=== PATIENT | male | born 1965 | race Caucasian/White ===

== ENCOUNTER 2023-02-05 18:19 | Emergency (ER) | payer MEDICAID, SELFPAY ==
[2023-02-05 18:16] VITALS: BP 171/102; PULSE 88; RESP 18; TEMP 36.8; O2SAT 98
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
--- NOTE | 2023-02-05 19:00 | RT.EKG_ITS ---
APPROVED REPORT Exam: Resting ECG Reason for Exam: chest pain Patient Location: E HR:75 bpm ECG Measurements Heart Rate 75 AXIS WV 168 P 54 QRSd 85 QRS 72 QT 426 T 72 QTc 477 Conclusion Sinus rhythm...normal P axis, V-rate 60- 99 Consider left ventricular hypertrophy...(S V1+R V5/V6) >3.50mV Borderline ST elevation, inferior leads...ST >0.06mV, II III aVF Narrow complex normal sinus rhythm at a rate of 75. Normal axis. Intervals within normal limits. M ild ST segment submillimeter elevations inferior leads. No reciprocal depressions. No prior for [facility].
[2023-02-05 19:11] LABS: Bilirubin Small (Negative); Blood Negative (Negative); Clarity Clear (Clear); Glucose Negative (Negative); Ketones Trace mg/dL (Negative); Leukocyte Esterase Negative (Negative); Nitrite Negative (Negative); Specific Gravity 1.025 (1.005-1.025); Urobilinogen 0.2 mg/dL (Up to 0.2); pH 5.5 (5-8)
[2023-02-05 19:23] LABS: *AMPHETAMINES SCREEN URINE Negative (Negative); *BARBITURATES SCREEN URINE Negative (Negative); *BENZODIAZEPINES SCREEN URINE Negative (Negative); Cannabinoids THC Positive (Negative); Cocaine Screen,Urine Negative (Negative); METHADONE URINE SCREEN Negative (Negative); OPIATES URINE SCREEN Negative (Negative)
[2023-02-05 19:25] LABS: Tricyclic Antidepressants Negative (Negative)
[2023-02-05 19:45] LABS: Abs Immature Grans 0.04 10^3/uL (0.0-0.06); Absolute Basophil Count 0.09 10^3/uL (0.0-0.2); Absolute Lymphocyte Count 2.35 10^3/uL (1.2-3.4); Absolute Monocyte Count 1.04 10^3/uL (0.1-0.8); Absolute Neutrophil Count 6.28 10^3/uL (1.2-6.7); Basophils % 0.9; HCT 40.9 % (40.0-50.0); HGB 14.4 g/dL (13.5-17.5); Immature Grans % 0.4; Lymphocytes % 23.7; MCH 32.7 pg (27.0-33.0); MCHC 35.2 % (32.0-36.0); MCV 93 fL (80-95); MPV 9.5 fL (8.0-11.0); Monocytes % 10.5; Neutrophils % 63.5; Platelet Count 332 10^3/uL (130-400); RDW 11.7 % (11.8-14.1); RDW-SD 40.1 fL
[2023-02-05 20:09] LABS: ALT 40 U/L (16-63); AST 73 U/L (15-37); Albumin 3.6 g/dL (3.4-5.0); Alkaline Phosphatase 73 U/L (46-116); Anion Gap 10.8 mmol/L (3-11); BUN 14 mg/dL (7-18); Bilirubin, Total 0.6 mg/dL (0.2-1.0); CO2 25.2 mmol/L (21.0-32.0); Calcium 9.9 mg/dL (8.5-10.1); Chloride 97 mmol/L (98-107); Glucose 112 mg/dL (74-106); Potassium 3.9 mmol/L (3.5-5.1); Sodium 133 mmol/L (136-145); TSH (W/Ref FT4) 3.81 uIU/mL (0.36-3.74); Total Protein 8.5 g/dL (6.4-8.2)
[2023-02-05 20:18] VITALS: BP 158/86
[2023-02-05 20:19] LABS: ETHANOL BLOOD < 3.0 mg/dL (<10)
[2023-02-05 20:20] LABS: Salicylate 7.2 mg/dL (<2.8)
[2023-02-05 20:22] LABS: Acetaminophen < 2 ug/mL (10-30)
[2023-02-05 20:37] LABS: FREE T4 1.28 ng/dL (0.76-1.46)
[2023-02-05 20:40] LABS: Troponin I < 50 ng/L (<or=60)
[2023-02-05] MEDS: Melatonin 3 MG TAB PO (21:14)
[2023-02-05] MEDS: LORazepam 1 MG TAB PO (21:14)
[2023-02-06] VITALS (44 sets, daily range): BP systolic 110–224; BP diastolic 75–122; PULSE 65–87; RESP 13–25; TEMP 36.7; O2SAT 94–99
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
--- NOTE | 2023-02-06 08:30 | CMSP_ITS ---
Care Management Safety Plan Status Status: Voluntary Reason for Wait Reason for Wait: Inpatient Admission Safety Plan Safety Plan: VOLUNTARY FOR INPATIENT PSYCHIATRIC STABILIZATION.? Patient is appropriate in all interactions since arriving at [facility]; Pt has demonstrated appropriate coping and communication skills, has articulated his or her needs and concerns and is fully engaged during staff interactions. Safety plan has been established with patient, and care team, to adhere to patient goals, identify restrictions based on behavioral status, address nutrition, and determine allowed personal belongings, tools for hygiene and personal care. Determine level of activity including ambulation, level of supervision, visitors, and determine privileges based on behaviors and level of engagement by pt. SAFETY PLAN: 1. Will remain on suicide precautions, in paper clothes 2. Will remain in room under direct supervision of one-on-one staff at all times provided by [employer]; GRANT, SHARED SERVICES AND OUTSOURCING MANAGER pleating supervisor. 3. May have paper cups, plates, finger foods as well as a cardboard spoon with which to eat meals. 4. Follow [facility] Management of the Admitted Behavioral Health Patient policy. 5. Shower available in Zone B without restriction. . 6. Personal belongings-soft items permitted at RN discretion, reading glasses provided as well. 7. Visitors-none at this time. 8. Activities: soft cart items approved per RN discretion. 9.? Bathroom privileges available without restriction in Zone B. 10. Phone: limited to cordless phone at RN discretion. Due to VOLUNTARY status, if patient wishes to leave [facility], staff will contact [facility] Crisis Screener ([phone]) and Load Planner ([phone]) as soon as possible. In the event of elopement, notify [facility] Police ([phone]).
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
--- NOTE | 2023-02-06 17:00 | RT.EKG_ITS ---
APPROVED REPORT Exam: Resting ECG Reason for Exam: chest pain Patient Location: E HR:74 bpm ECG Measurements Heart Rate 74 AXIS [place] 163 P 49 QRSd 85 QRS 66 QT 417 T 59 QTc 463 Conclusion Sinus rhythm...normal P axis, V-rate 60- 99 Consider left ventricular hypertrophy...(S V1+R V5/V6) >3.50mV Anterior ST elevation, probably due Slight ST elevation V1-3. slightly changed from previous.
--- NOTE | 2023-02-06 17:15 | DI.CT_ITS ---
Exam(s) CT HEAD WO EXAM: CT HEAD WO CLINICAL HISTORY: memory deficits. TECHNIQUE: Imaging Protocol: Axial computed tomography images with coronal and sagittal reformatted images were created and reviewed COMPARISON: No exams were available for comparison FINDINGS: Ventricles and Extra axial spaces: Normal in size and morphology for the patient's age. Hemorrhage: None. Cerebral parenchyma: There are areas of decreased attenuation in the white matter suspicious for kyle y small vessel ischemic disease. There are bilateral chronic lacunar infarcts present. Midline shift: None. Brainstem/Cerebellum: Normal. Calvarium: Normal. Visualized Paranasal sinuses/Mastoids: There is a mucous retention cyst in the right sphenoid sinus. The mastoid air cells are clear as are the other paranasal sinuses. Soft Tissues: Unremarkable. IMPRESSION: No acute intracranial process. RADIATION DOSE DELIVERED: Total DLP DATA REPOSITORY: All CT scans at this facility are submitted to the National Radiology Data Registry (NRDR) Dose Index Registry (DIR) with the [employer] (ACR). RADIATION OPTIMIZATION: All CT scans at this facility use at least one of these dose optimization te chniques: automated exposure control; mA and/or kV adjustment per patient size (includes targeted exa ms where dose is matched to clinical indication); or iterative reconstruction.
[2023-02-06] MEDS: Aspirin 325 MG TAB PO (17:24)
[2023-02-06 17:49] LABS: Troponin I < 50 ng/L (<or=60)
[2023-02-06] MEDS: Mylanta Suspension 30 ML CUP PO (18:28)
[2023-02-06] MEDS: fentaNYL 100 MCG/2 ML VIAL 25 MCG IVP (18:28)
[2023-02-06] MEDS: Ondansetron 4 MG/2 ML VIAL IVP (18:28)
[2023-02-06] MEDS: LORazepam 2 MG/ML VIAL 1 MG IVP (18:43)
[2023-02-06 18:44] LABS: Troponin I < 50 ng/L (<or=60)
--- NOTE | 2023-02-06 19:42 | DI.VRAD_ITS ---
PROCEDURE INFORMATION: Exam: CT Head Without Contrast Exam date and time: 02/06/2023 7:19 PM Age: 57 years old Clinical indication: Other: Memory deficits TECHNIQUE: Imaging protocol: Computed tomography of the head without contrast. COMPARISON: No relevant prior studies available. FINDINGS: Brain: Moderate generalized cerebral atrophy. Chronic appearing lacunar infarcts adjacent to the right caudate head. No intracranial mass, hemorrhage or evidence of acute ischemia. Cerebral ventricles: No ventriculomegaly. Paranasal sinuses: Mucous retention cyst in the right sphenoid sinus locule. Paranasal sinuses are otherwise clear. Mastoid air cells: Visualized mastoid air cells are well aerated. Bones/joints: Mild deformity of the right lamina papyracea suggests old fracture. No acute fracture. Soft tissues: Unremarkable. IMPRESSION: No acute intracranial abnormality Dictated and Authenticated by: Antelmo Yoo MD. Ordering:KIRA Miranda MD
[2023-02-06] MEDS: Ondansetron O.D.T. 4 MG TABEF PO (20:10)
--- NOTE | 2023-02-07 07:07 | ED.PROG_ITS ---
Date of service: 02/07/23 Time of Service: 07:07 Medical Decision Making I received signout on this 57-year-old male who is in the emergency department voluntarily in the setting of suicidal ideation with plan to overdose. No active behavioral issues last shift. Patient has a clinical safety patient observer in place. Will order a regular diet on a safety tray, update documentation as clinically warranted, and signed patient out to oncoming evening provider. 12:07 PM Patient was reportedly having chest pain and reported symptoms of reflux. Will repeat an ECG and order Pepto-Bismol. I spoke with any [facility] Human services. Patient remains voluntary. 4:30 PM No active behavioral issues on my shift. Will sign patient out to Dr. Virgen. Sign Out Sign Out Data: Sign Out Comment: 57-year-old male patient with unknown past medical history brought here to be incarcerated after being found in his vehicle. Is a poor historian medical screening exam monitoring unrevealing with no acute medical illness to explain his symptoms. Psychiatric evaluation completed and patient was agreeable to voluntary inpatient psychiatric stay. He did receive melatonin and Ativan 1 mg to help him sleep. We are awaiting records from [facility] as he is from the [facility] Last updated by Emy Santos NP at 02/05/23 21:55 Sign Out Comment: SI, voluntary, awaiting reeval for possible placement Last updated by Aaron Mayer MD at 02/06/23 07:26 Sign Out Comment: This is a 57-year-old male who is unhoused who was kicked out of his place of residence. He is endorsing both homicidal ideation toward his previous other who kept his dog for which he is resentful. He is also endorsing suicidal ideation. While in the department he began complaining of heartburn. We have repeated his EKG and obtained cardiac enzymes the second of which is pending. I was also informed that he has significant memory deficits and we ordered a noncontrast head CT which demonstrates no acute intracranial abnormality. The plan is for reassessment by mental health for voluntary placement in the morning. Last updated by Ruth Paz MD at 02/06/23 20:22 Discharge Plan Discharge Details Chief Complaint: PsychEval Primary Care Provider: Unknown,Unknown ED Provider: Alfredo Reed Home Meds and New Rx's Prescriptions: No Action No Known Home Meds
--- NOTE | 2023-02-07 07:15 | NUR.NOTE ---
Nursing Note: Nursing report hand-off received by Delicia Charles RN on 02/07/23 at 0645 hours.
--- NOTE | 2023-02-07 12:00 | RT.EKG_ITS ---
APPROVED REPORT Exam: Resting ECG Reason for Exam: Chest pain Patient Location: E HR:66 bpm ECG Measurements Heart Rate 66 AXIS SC 141 P 9 QRSd 94 QRS 79 QT 431 T 66 QTc 452 Conclusion Sinus rhythm...normal P axis, V-rate 60- 99 Consider left ventricular hypertrophy...(S V1+R V5/V6) >3.50mV Narrow complex normal sinus rhythm at a rate of 66. Normal axis. Intervals within normal limits. M ild concave upsloping ST segment elevations in 2 3 aVF and leads V3 through V6. Appears similar to matteo palafox dated yesterday and the day before.
[2023-02-07] MEDS: Calcium Carbonate *TUMS* 500 MG CHEW PO (12:52)
--- NOTE | 2023-02-07 12:55 | PDOC.CMSAFE ---
Care Management Safety Plan Status Status: Voluntary Reason for Wait Reason for Wait: Inpatient Admission Safety Plan Safety Plan: VOLUNTARY FOR INPATIENT PSYCHIATRIC STABILIZATION.? Patient is appropriate in all interactions since arriving at [facility]; Pt has demonstrated appropriate coping and communication skills, has articulated his or her needs and concerns and is fully engaged during staff interactions. Safety plan has been established with patient, and care team, to adhere to patient goals, identify restrictions based on behavioral status, address nutrition, and determine allowed personal belongings, tools for hygiene and personal care. Determine level of activity including ambulation, level of supervision, visitors, and determine privileges based on behaviors and level of engagement by pt. SAFETY PLAN: 1. Will remain on suicide precautions, in paper clothes 2. Will remain in Zone B under direct supervision of one-on-one staff at all times provided by [employer]; GRANT, INTERNAL AFFAIRS COMMANDER woodwind instruments inspector. 3. May have paper cups, plates, finger foods as well as a cardboard spoon with which to eat meals. 4. Follow [facility] Management of the Admitted Behavioral Health Patient policy. 5. Shower available in Zone B without restriction. 6. Personal belongings-soft items permitted at RN discretion, reading glasses provided as well. 7. Visitors-none at this time. 8. Activities: soft cart items approved per RN discretion. 9.? Bathroom available in Zone B without restriction. 10. Phone: limited to [facility] cordless phone at RN discretion. Due to VOLUNTARY status, if patient wishes to leave [facility], staff will contact [facility] Crisis Screener ([phone]) and On-Call Corporate Quality Manager ([phone]) as soon as possible. In the event of elopement, notify [facility] Police ([phone]).
[2023-02-07] MEDS: Aspirin 81 MG CHEW 324 MG CH (20:30)
[2023-02-07] MEDS: Melatonin 3 MG TAB PO (21:02)
[2023-02-07] MEDS: Acetaminophen 325 MG TAB 650 MG PO (21:02)
[2023-02-08 07:51] VITALS: BP 120/73; PULSE 61; RESP 14; TEMP 36.6; O2SAT 96
--- NOTE | 2023-02-08 10:16 | PDOC.MHPN2 ---
Date of service: 02/08/23 Time of Service: 10:15 Mental Health Emergency Note Release [facility] release signed:: Yes Reason for Visit Valente is at [facility] seeking voluntary inpatient treatment. In the last 2 weeks has the pt presented for ES prior to today?: Unknown Client Information Client is: New Well Housed: No,status: Homeless Non Suicidal Self Injury Current: No History: No Safety Risk/Harm to Self or Others Current Ideation to Harm Self or Others: Yes to self. (Valente reports he does not have access to anything but thinks about it, and wants all the pain to go away.) Intent: no, has no intent. Plan: no.does not have a plan. History of suicide attempt: No history of suicide attempt reported and to others. (Valente wants to harm/kill the lady who stole his dog. Valente did not give this contract technical writer a specific plan or intention but has stated several homicidal statements about her.) Intent: No Plan: no, does not have a plan. Risk: Does risk to harm exist?: yes. Access to means: No. Risk: Moderate Risk Duty to warn indicated: No Asssessment/Mental Status Appearance: Disheveled Attitude: Guarded Behavior: Unremarkable Speech: Normal Affect: Cogruent with mood Mood: Sad, Stressed, Depressed, Anxious and Irritable Thought process: Goal directed Hallucinations: No evidence Delusions: No evidence Attention: Unremarkable Perception: Not impaired Orientation: Fully orientated Memory: Intact Insight: Fair Judgement: Fair Neurovegetative Symptoms Sleep: Increase Appetitie: No change Interests: No change Energy: No change Libido: Not applicable Substance Use: Do you use nicotine?: No Have you used substances in the last 7 days?: No Additional Issues: Assaultive/Threatening Behavior: Yes Medical Concerns: No Client engaged in active self harm w/weapon: No Threatening to run away: No Child reported abuse/neglect: No Voluntarily presenting for services: Yes Domestic violence is a concern: No Extreme Psychosis or extreme behavior is present: No Impression Valente presents more guarded than usual today. Valente is visably upset and tearful when talking to this contract technical writer. Valente reports he wants all his pain to go away and he wants his dog back. Valente reports he is having thoughts of harming the women who stole his dog because he does not understand why she could do such a thing. Valente reports that he wants to kill her because evil should be met with evil. When asked about suicidal ideation Valente reports he wants the pain to go away but he does not have access to harm himself. Valente reports feeling confused and sad. He has never been in a life situation like this and is unsure what to do. Valente will continue to wait for voluntary treatment. Plan/Disposition Recommended Disposition: Hospitalization facilities contacted. Plan: Valente will remain at [facility] until a voluntary placement is found for him. Person reported agreement to plan: Yes Reports/communication Outcome discussed with: ED/Personnel
--- NOTE | 2023-02-08 10:42 | W.EDPROG ---
Date of service: 02/08/23 Time of Service: 10:42 Medical Decision Making Care signed out by Dr. Reed, patient notably medically screened and cleared. Patient here voluntarily for suicidal ideation. Patient pending psychiatric treatment facility placement at time of signout. I received call from Ashley Okeefe TECHNICAL PROPOSAL WRITER at [facility], discussed ED presentation and course, she will accept the patient in transfer. Patient is agreeable with plan for transfer. Sign Out Sign Out Data: Sign Out Comment: 57-year-old male patient with unknown past medical history brought here to be incarcerated after being found in his vehicle. Is a poor historian medical screening exam monitoring unrevealing with no acute medical illness to explain his symptoms. Psychiatric evaluation completed and patient was agreeable to voluntary inpatient psychiatric stay. He did receive melatonin and Ativan 1 mg to help him sleep. We are awaiting records from [facility] as he is from the [facility] Last updated by Emy Santos NP at 02/05/23 21:55 Sign Out Comment: SI, voluntary, awaiting reeval for possible placement Last updated by Aaron Mayer MD at 02/06/23 07:26 Sign Out Comment: This is a 57-year-old male who is unhoused who was kicked out of his place of residence. He is endorsing both homicidal ideation toward his previous other who kept his dog for which he is resentful. He is also endorsing suicidal ideation. While in the department he began complaining of heartburn. We have repeated his EKG and obtained cardiac enzymes the second of which is pending. I was also informed that he has significant memory deficits and we ordered a noncontrast head CT which demonstrates no acute intracranial abnormality. The plan is for reassessment by mental health for voluntary placement in the morning. Last updated by Ruth Paz MD at 02/06/23 20:22 Sign Out Comment: 57-year-old suicidal medically cleared voluntary intermittent complaints of chest pain currently awaiting placement. No active behavioral issues last shift. Last updated by Alfredo Reed MD at 02/07/23 16:33 Sign Out Comment: SI, voluntary, awaiting placement. No interventions needed. Did have extensive chest pain workup over the last 24 hours which was negative. Aspirin and GI cocktail given this evening for chest pain. Last updated by Nima Virgen DO at 02/07/23 21:51 Sign Out Comment: Patient who is suicidal and depressed awaiting placement. He was given aspirin and GI cocktail for events of chest pain that the day before have been worked up thoroughly and was negative for acute coronary syndrome. He still depressed and will be voluntarily admitted to psychiatric institution and we are awaiting placement. Last updated by Bryn Reed MD at 02/08/23 05:56 Discharge Plan Disposition Patient Disposition: Psychiatric Hospital/Unit Specific Psychiatric Facility: [facility] Condition: Serious Discharge Details Chief Complaint: PsychEval Clinical Impression: Suicidal thoughts, Homelessness Primary Care Provider: Unknown,Unknown ED Provider: Aquiles Horta Home Meds and New Rx's Prescriptions: No Action No Known Home Meds
== END 2023-02-08 15:05 ==
PROVIDERS: Emergency Medicine Emergency Medical Services; Nurse Practitioner Acute Care; Emergency Provider Student in an Organized Health Care Education/Training Program
DX: R45.851 Suicidal ideations (principal); R07.89 Other chest pain; R94.31 Abnormal electrocardiogram [ECG] [EKG]; E78.5 Hyperlipidemia, unspecified; I10 Essential (primary) hypertension; F17.210 Nicotine dependence, cigarettes, uncomplicated; Z59.00 Homelessness unspecified
CPT/HCPCS: 00123; 80053; 80307; 93005; 96374; 96375; 99285; 70450; 80320; 80329; 81003; 84439; 84443; 84484; 85025; 93010; J2060; J2405; J3010